=== PATIENT | female | born 1985 | race American Indian/Alaskan Native ===

== ENCOUNTER 2022-06-23 20:57 | Emergency (ER) | payer SELFPAY ==
[2022-06-24] MEDS ORDERED: Ondansetron 4 MG/2 ML SDV IVPUSH ONE (00:50)
[2022-06-24] MEDS ORDERED: HYDROmorphone 1 MG/ML Syringe IVPUSH ONE (00:50)
[2022-06-24] MEDS ORDERED: Tamsulosin 0.4 MG Cap.ER PO ONE (00:51)
[2022-06-24] MEDS ORDERED: Sodium Chloride 0.9% 1,000 ML IV SCH (01:00)
[2022-06-24] MEDS ORDERED: Sodium Chloride 0.9% 10 ML Syringe FLUSH ONE (02:52)
[2022-06-24] MEDS ORDERED: Iopamidol 612 MG/ML 100 ML Bottle IVPUSH ONE ×2 (02:52→02:53)
[2022-06-24] MEDS ORDERED: Levofloxacin 750 MG Tab PO STA (03:37)
== END 2022-06-24 04:22 | disposition home or self-care (01) ==
LOC: JD.ED 20:57
DX: N12 Tubulo-interstitial nephritis, not specified as acute or chronic (principal); F17.210 Nicotine dependence, cigarettes, uncomplicated
CPT/HCPCS: 36415; 74177; 80053; 81001; 81025; 83605; 83735; 85007; 85027; 87086; 87088; 87186; 96361; 96374; 96375; 99284; A9270; J1170; J2405; J3490; J7030; Q9967